=== PATIENT | male | born 1950 | race Two or more races ===

== ENCOUNTER → 2016-12-01 | Day surgery (SDC) | payer MEDICARE ==
[~2016-12-01] MED LIST: CERT400S SQ; CHOL500016 PO; FENTANYL PF 100 MCG/2 ML VIAL. IV PRN; FEXO180T81 PO; FLUT100D IH; HYDROMORPHONE 2 MG/ML VIAL. IV PRN; INSU100V5 IJ; IV RINGERS,LACTATED 1000ML 1,000 ML IV SCH; LEFL20TA15 PO; LEVO200T PO; LEVO75TA PO; LIDOCAINE 1% 1 ML SYRINGE. ID PRN; LIDOCAINE 2% PF Vial for OR 5 ML VIAL. ONE; METF10002 PO; MORPHINE SULFATE 2 MG/ML DISP.SYRIN. IV PRN; NAPR500T3 PO; NPH,100V SQ; ONDANSETRON PF 4 MG/2 ML VIAL. IV PRN; PREG150C PO; PROCHLORPERAZINE 10 MG/2 ML VIAL. IV PRN; PROPOFOL 40 ML IV ONE; SIMV20TA3 PO; TRAN4TAB9 PO; VERA240C2 PO; VITAMIN B12
[2016-12-01 09:00] VITALS: BP 142/76
--- NOTE | 2016-12-02 13:16 | PATHOLOGY ---
PATHOLOGY REPORT * * * * * * * * FINAL DIAGNOSIS: Gastric biopsy, antrum: - Mild chronic gastritis. COMMENT: Sections of the gastric biopsy reveal segments of gastric antral and gastric body mucosa showing congestion and mild chronic inflammation. An immunoperoxidase stain for Helicobacter is obtained. No Helicobacter organisms are identified. There is no evidence of malignancy. (JPM:; d/t: 12/02/16) Special Stain Performed: Immunoperoxidase stain for Helicobacter (A1) REPORT ELECTRONICALLY SIGNED BY: Charles Ross M.D. DATE/TIME: 12/02/2016 13:15 * * * * * * * * GROSS PATHOLOGY: Received in formalin labeled "Bneito Hartmann, antrum," are four segments of carter soft tissue measuring 1.0 x 0.7 x 0.1 cm in aggregate dimensions and ranging from 0.3 to 0.7 cm in maximum dimension. The specimen is submitted entirely in cassette A1. (CAA; 12/01/2016) INITIAL CPT CODE(S): A; 25736, 46074 Professional services performed [place] [facility] [address] Technical services performed by [facility] at [address] [place] [address]. SPECIMEN(S) RECEIVED: A.Antrum CLINICAL HISTORY: Anemia PATIENT: BENITO HARTMANN /AGE: 402/15/1950 (Age: 66) PATIENT #: [id number] ALT CASE #: SPECIMEN COLLECTION DATE: 12/01/2016 SPECIMEN RECEIVED DATE: 12/01/2016 [facility] - [address] [place] [address] - PHONE: [phone] * * * END OF REPORT * * *
== END ==
LOC: ENDOS 07:16
PROVIDERS: ATTEND Internal Medicine Gastroenterology
DX: D50.9 Iron deficiency anemia, unspecified (principal); K29.50 Unspecified chronic gastritis without bleeding; K26.9 Duodenal ulcer, unspecified as acute or chronic, without hemorrhage or perforation; K57.30 Diverticulosis of large intestine without perforation or abscess without bleeding; K64.8 Other hemorrhoids; M19.90 Unspecified osteoarthritis, unspecified site; E78.00 Pure hypercholesterolemia, unspecified; E11.9 Type 2 diabetes mellitus without complications; E03.9 Hypothyroidism, unspecified; Z87.891 Personal history of nicotine dependence; Z90.49 Acquired absence of other specified parts of digestive tract; Z98.890 Other specified postprocedural states
CPT/HCPCS: 43239; 45378; 82947; 88305; 88342; J2704; G0641